=== PATIENT | female | born 1955 | race Two or more races ===

== ENCOUNTER 2019-11-03 16:00 | Inpatient (IN) | payer MEDICARE, MEDICAID ==
[~2019-11-03] VITALS: Ht 160 cm; Wt 98.0 kg
[2019-11-03] MEDS ORDERED: ONDANSETRON HCL 4MG/2ML INJ IV ONE (16:45)
[2019-11-03] MEDS ORDERED: SODIUM CHLORIDE 0.9% 500 ML IV ONE (16:45)
[2019-11-03] MEDS ORDERED: SODIUM CHLORIDE 0.9% 1000ML BAG (SEPSIS BOLUS) IV ONE (17:15)
[2019-11-03] MEDS ORDERED: LEVOFLOXACIN 750MG PREMIX 150 ML IV ONE (17:15)
[2019-11-03 18:55] LABS: HEMATOCRIT. 37.9 % (36.0-48.0); HEMOGLOBIN. 12.5 g/dL (12.0-16.0); MEAN CORPUSCULAR HEMOGLOBIN 31.2 pg (28.0-32.0); MEAN CORPUSCULAR VOLUME 94.4 fL (81.0-99.0); MEAN PLATELET VOLUME 10.7 fl (7.4-10.4); PLATELET 149 x1000/uL (130-400); RED BLOOD CELL COUNT 4.02 mill/uL (4.2-5.4); RED CELL DISTRIBUTION WIDTH 16.9 % (11.6-14.6)
[2019-11-03 19:01] LABS: CHLORIDE 106 mEq/L (98-107)
[2019-11-03 19:03] LABS: CLARITY URINE CLOUDY (CLEAR); COLOR URINE DK YELLOW (YELLOW); KETONES URINE TRACE (NEGATIVE); LEUKOCYTE ESTERASE URINE 2+ (NEGATIVE); NITRITE URINE POSITIVE (NEGATIVE); OCCULT BLOOD URINE 1+ (NEGATIVE); PH URINE 5.5 (4.5-8.0); PROTEIN URINE 1+ (NEGATIVE); SPECIFIC GRAVITY URINE 1.019 (1.005-1.030)
[2019-11-03 19:39] LABS: PLATELET ESTIMATE NORMAL
[2019-11-03] MEDS ORDERED: DILTIAZEM HCL 5MG/ML 5ML VIAL IV ONE (19:45)
[2019-11-04] MEDS ORDERED: ENOXAPARIN 80MG/0.8ML SYR SUBCUT ONE (00:15)
[2019-11-04] MEDS ORDERED: ASPIRIN 325MG TABLET PO SCH (01:30)
[2019-11-04] MEDS ORDERED: ENOXAPARIN 100MG/ML SYR SUBCUT SCH ×2 (01:31→16:00)
[2019-11-04] MEDS ORDERED: CLONIDINE 0.1MG TABLET PO PRN (02:30)
[2019-11-04] MEDS ORDERED: MAGNESIUM/ALUMINUM HYDROXIDE/SIMETHICONE 30ML UDC PO PRN (02:30)
[2019-11-04] MEDS ORDERED: DOCUSATE SODIUM 100MG CAPSULE PO PRN (02:30)
[2019-11-04] MEDS ORDERED: HYDROCODONE/ACETAMINOPHEN 5/325MG TABLET PO PRN (02:30)
[2019-11-04] MEDS: MORPHINE SULFATE 2 MG/ML CPJ (NOT FOR IM USE) IV PRN (03:05)
[2019-11-04] MEDS ORDERED: FUROSEMIDE 40MG/4ML VIAL IV SCH (09:30)
[2019-11-04] MEDS ORDERED: AMLODIPINE 10MG TABLET PO SCH (09:30)
[2019-11-04] MEDS ORDERED: METOPROLOL TARTRATE 25MG TABLET PO SCH (09:30)
[2019-11-04] MEDS: ASPIRIN 81MG EC TABLET PO SCH (09:52)
[2019-11-04 16:20] LABS: BG BASE EXCESS -2.4 mmol/L (-2.0-2.0); BG CARBOXYHEMOGLOBIN 0.3 % (0.5-1.5); BG DEOXYHEMOGLOBIN 1.7 % (0.0-5.0); BG FRACTION INSPIRED OXYGEN 100; BG HCO3 ACT 22.5 mmol/L (22.0-26.0); BG METHEMOGLOBIN 0.2 % (0.0-1.5); BG OXYGEN SATURATION 98.3 % (92.0-98.5); BG OXYHEMOGLOBIN 97.8 % (94.0-97.0); BG PCO2 39.3 mmHg (35.0-45.0); BG PH 7.376 (7.350-7.450); BG SAMPLE SITE RIGHT RADIAL; BG TOTAL HEMOGLOBIN 12.6 g/dL (12.0-18.0); BG VENT MODE MASK - NRB
[2019-11-04 17:10] VITALS: BP 86/30
[2019-11-04] MEDS ORDERED: SODIUM CHLORIDE 0.9% 500 ML IV ONE (17:15)
[2019-11-04] MEDS: ENOXAPARIN 100MG/ML SYR SUBCUT SCH (17:21)
[2019-11-04 18:00] VITALS: BP 86/30
[2019-11-04] MEDS ORDERED: SITA25TA3 MT (18:12)
[2019-11-04] MEDS ORDERED: INSU100I24 SQ (18:12)
[2019-11-04] MEDS ORDERED: METF-414 MT (18:12)
[2019-11-04 18:53] VITALS: BP 91/38
[2019-11-04 20:00] VITALS: BP 95/48
[2019-11-04] MEDS ORDERED: LEVOFLOXACIN 500MG PREMIX 100 ML IV SCH (20:00)
[2019-11-04] MEDS: METOPROLOL TARTRATE 25MG TABLET PO SCH (20:59)
[2019-11-04 22:59] LABS: *AMPHETAMINES SCREEN URINE NEGATIVE (NEGATIVE); *BARBITURATES SCREEN URINE NEGATIVE (NEGATIVE); *BENZODIAZEPINES SCREEN URINE NEGATIVE (NEGATIVE); *COCAINE SCREEN URINE NEGATIVE (NEGATIVE); METHADONE URINE SCREEN NEGATIVE (NEGATIVE); OPIATES URINE SCREEN PRESUMTIVE POSITIVE (NEGATIVE)
[2019-11-04 23:00] LABS: CANNABINOID URINE SCREEN NEGATIVE (NEGATIVE); PHENCYCLIDINE URINE SCREEN NEGATIVE (NEGATIVE)
[2019-11-05] VITALS: BP 93/36
[2019-11-05 04:00] VITALS: BP 111/56
[2019-11-05] MEDS: ENOXAPARIN 100MG/ML SYR SUBCUT SCH ×2 (06:29→17:26)
[2019-11-05 08:00] VITALS: BP 101/37
[2019-11-05] MEDS: ASPIRIN 81MG EC TABLET PO SCH (08:31)
[2019-11-05] MEDS: METOPROLOL TARTRATE 25MG TABLET PO SCH ×2 (08:32→21:04)
[2019-11-05] MEDS: AMLODIPINE 2.5MG TABLET PO SCH (08:32)
[2019-11-05] MEDS ORDERED: ENOXAPARIN 40MG/0.4ML SYR SUBCUT SCH (09:00)
[2019-11-05 09:21] LABS: BG BASE EXCESS -3.8 mmol/L (-2.0-2.0); BG DEOXYHEMOGLOBIN 5.7 % (0.0-5.0); BG FRACTION INSPIRED OXYGEN 44; BG HCO3 ACT 20.3 mmol/L (22.0-26.0); BG METHEMOGLOBIN 0.1 % (0.0-1.5); BG OXYGEN SATURATION 94.3 % (92.0-98.5); BG OXYHEMOGLOBIN 94.2 % (94.0-97.0); BG PCO2 33.9 mmHg (35.0-45.0); BG PH 7.396 (7.350-7.450); BG PO2 73.8 mmHg (75.0-100.0); BG SAMPLE SITE RIGHT BRACHIAL; BG VENT MODE NASAL CANNULA
[2019-11-05] MEDS ORDERED: MAGNESIUM HYDROXIDE 400MG/5ML 30ML UDC PO PRN (11:15)
[2019-11-05] MEDS ORDERED: FUROSEMIDE 40MG/4ML VIAL IVP SCH (11:30)
[2019-11-05 12:00] VITALS: BP 97/49
[2019-11-05 15:46] LABS: INR 1.1; PROTHROMBIN TIME 11.6 sec (9.6-11.0)
[2019-11-05 15:49] LABS: CHLORIDE 104 mEq/L (98-107)
[2019-11-05 16:00] VITALS: BP 108/58
[2019-11-05 16:02] LABS: BASOPHILS % 0.4 % (0.0-2.0); EOSINOPHILS % 0.6 % (0.0-5.0); HEMATOCRIT. 36.8 % (36.0-48.0); HEMOGLOBIN. 12.1 g/dL (12.0-16.0); LDL CHOLESTEROL 95 mg/dL (5-100); LYMPHOCYTES % 12.1 % (20.0-50.0); MEAN CORPUSCULAR HEMOGLOBIN 31.1 pg (28.0-32.0); MEAN CORPUSCULAR VOLUME 94.5 fL (81.0-99.0); MEAN PLATELET VOLUME 10.1 fl (7.4-10.4); MONOCYTES % 9.8 % (2.0-8.0); NEUTROPHILS % 77.1 % (40.0-76.0); PLATELET 156 x1000/uL (130-400); RED BLOOD CELL COUNT 3.89 mill/uL (4.2-5.4)
[2019-11-05 16:04] LABS: HDL CHOLESTEROL 10 mg/dL (40-59)
[2019-11-05] MEDS: CEFAZOLIN 1000MG PREMIX 50 ML IV SCH ×2 (18:00→18:39)
[2019-11-05] MEDS ORDERED: MAGNESIUM 1 G PREMIX 100 ML IV ONE (18:30)
[2019-11-05 20:00] VITALS: BP 110/63
[2019-11-05] MEDS: GUAIFENESIN 600MG ER TABLET PO SCH (21:04)
[2019-11-05] MEDS: IPRATROPIUM/ALBUTEROL 0.5-3(2.5)MG/3ML NEB HHN SCH (21:38)
[2019-11-06] VITALS: BP 114/56
[2019-11-06] MEDS: CEFAZOLIN 1000MG PREMIX 50 ML IV SCH ×3 (01:01→17:55)
[2019-11-06] MEDS: IPRATROPIUM/ALBUTEROL 0.5-3(2.5)MG/3ML NEB HHN SCH ×4 (02:21→20:29)
[2019-11-06 04:00] VITALS: BP 129/58
[2019-11-06] MEDS: ENOXAPARIN 100MG/ML SYR SUBCUT SCH ×2 (05:07→17:10)
[2019-11-06 08:00] VITALS: BP 111/59
[2019-11-06 08:11] LABS: BASOPHILS % 0.8 % (0.0-2.0); EOSINOPHILS % 1.1 % (0.0-5.0); HEMATOCRIT. 34.7 % (36.0-48.0); HEMOGLOBIN. 11.6 g/dL (12.0-16.0); LYMPHOCYTES % 15.8 % (20.0-50.0); MEAN CORPUSCULAR HEMOGLOBIN 30.9 pg (28.0-32.0); MEAN CORPUSCULAR VOLUME 92.6 fL (81.0-99.0); MEAN PLATELET VOLUME 10.9 fl (7.4-10.4); MONOCYTES % 12.1 % (2.0-8.0); NEUTROPHILS % 70.2 % (40.0-76.0); PLATELET 158 x1000/uL (130-400); RED BLOOD CELL COUNT 3.75 mill/uL (4.2-5.4); RED CELL DISTRIBUTION WIDTH 16.9 % (11.6-14.6)
[2019-11-06 08:16] LABS: CHLORIDE 103 mEq/L (98-107)
[2019-11-06] MEDS ORDERED: POTASSIUM CHLORIDE 10MEQ TABLET SR PO NR (08:30)
[2019-11-06] MEDS: METOPROLOL TARTRATE 25MG TABLET PO SCH ×2 (09:07→21:14)
[2019-11-06] MEDS: AMLODIPINE 2.5MG TABLET PO SCH (09:08)
[2019-11-06] MEDS: GUAIFENESIN 600MG ER TABLET PO SCH ×2 (09:08→21:14)
[2019-11-06] MEDS: ASPIRIN 81MG EC TABLET PO SCH (09:08)
[2019-11-06 12:00] VITALS: BP 112/55
[2019-11-06] MEDS ORDERED: FUROSEMIDE 40MG/4ML VIAL IVP NR (13:30)
[2019-11-06 16:00] VITALS: BP 114/58
[2019-11-06] MEDS: ACETAMINOPHEN 325MG TABLET PO PRN (17:10)
[2019-11-06 20:00] VITALS: BP 117/44
[2019-11-06] MEDS: ATORVASTATIN CALCIUM 20MG TABLET PO SCH (21:12)
[2019-11-07] VITALS: BP_SYST 134; BP_SYST 139; BP_DIAS 54; BP_DIAS 89
[2019-11-07] MEDS: IPRATROPIUM/ALBUTEROL 0.5-3(2.5)MG/3ML NEB HHN SCH ×3 (01:47→22:02)
[2019-11-07] MEDS: CEFAZOLIN 1000MG PREMIX 50 ML IV SCH ×3 (02:09→18:19)
[2019-11-07] MEDS: ACETAMINOPHEN 325MG TABLET PO PRN (03:31)
[2019-11-07 04:00] VITALS: BP 116/50
[2019-11-07] MEDS: ENOXAPARIN 100MG/ML SYR SUBCUT SCH (06:02)
[2019-11-07 07:42] LABS: EOSINOPHILS % 1.1 % (0.0-5.0); HEMATOCRIT. 34.4 % (36.0-48.0); HEMOGLOBIN. 11.7 g/dL (12.0-16.0); MEAN CORPUSCULAR VOLUME 91.3 fL (81.0-99.0); MEAN PLATELET VOLUME 10.5 fl (7.4-10.4); MONOCYTES % 11.8 % (2.0-8.0); NEUTROPHILS % 69.1 % (40.0-76.0); PLATELET 160 x1000/uL (130-400); RED BLOOD CELL COUNT 3.76 mill/uL (4.2-5.4); RED CELL DISTRIBUTION WIDTH 16.9 % (11.6-14.6)
[2019-11-07 07:43] LABS: CHLORIDE 105 mEq/L (98-107)
[2019-11-07 08:00] VITALS: BP 128/78
[2019-11-07] MEDS: ASPIRIN 81MG EC TABLET PO SCH (09:09)
[2019-11-07] MEDS: GUAIFENESIN 600MG ER TABLET PO SCH ×2 (09:09→20:47)
[2019-11-07] MEDS: AMLODIPINE 2.5MG TABLET PO SCH (09:09)
[2019-11-07] MEDS: METOPROLOL TARTRATE 25MG TABLET PO SCH ×2 (09:12→20:47)
[2019-11-07] MEDS: CLOPIDOGREL 75MG TABLET PO SCH (11:38)
[2019-11-07 12:00] VITALS: BP 121/63
[2019-11-07 16:00] VITALS: BP 133/62
[2019-11-07 20:00] VITALS: BP 144/68
[2019-11-07] MEDS: ATORVASTATIN CALCIUM 20MG TABLET PO SCH (20:47)
[2019-11-07] MEDS: MORPHINE SULFATE 2 MG/ML CPJ (NOT FOR IM USE) IV PRN (20:48)
[2019-11-08] VITALS: BP 139/89
[2019-11-08] MEDS: IPRATROPIUM/ALBUTEROL 0.5-3(2.5)MG/3ML NEB HHN SCH ×4 (02:32→20:41)
[2019-11-08] MEDS: CEFAZOLIN 1000MG PREMIX 50 ML IV SCH ×3 (02:53→20:40)
[2019-11-08 04:00] VITALS: BP 146/84
[2019-11-08 08:00] VITALS: BP 118/57
[2019-11-08] MEDS ORDERED: ENOXAPARIN 30MG/0.3ML SYR SUBCUT SCH (09:00)
[2019-11-08] MEDS: CLOPIDOGREL 75MG TABLET PO SCH (09:21)
[2019-11-08] MEDS: ONDANSETRON HCL 4MG/2ML INJ IV PRN ×2 (09:21→17:56)
[2019-11-08] MEDS: ASPIRIN 81MG EC TABLET PO SCH (09:21)
[2019-11-08] MEDS: AMLODIPINE 2.5MG TABLET PO SCH (09:22)
[2019-11-08] MEDS: GUAIFENESIN 600MG ER TABLET PO SCH ×2 (09:22→20:50)
[2019-11-08] MEDS: METOPROLOL TARTRATE 25MG TABLET PO SCH ×2 (09:22→20:50)
[2019-11-08 12:00] VITALS: BP 92/48
[2019-11-08] MEDS: PANTOPRAZOLE SODIUM 40 MG/VIAL IV SCH (15:16)
[2019-11-08 15:57] VITALS: BP 83/51
[2019-11-08] MEDS: SODIUM CHLORIDE 0.9% 1,000 ML IV SCH (16:09)
[2019-11-08 16:16] LABS: TOTAL IRON BINDING CAPACITY 213 ug/dL (250-450)
[2019-11-08] MEDS: MORPHINE SULFATE 2 MG/ML CPJ (NOT FOR IM USE) IV PRN (18:06)
[2019-11-08 20:00] VITALS: BP 113/67
[2019-11-08] MEDS: ATORVASTATIN CALCIUM 20MG TABLET PO SCH (20:49)
[2019-11-08 23:29] LABS: HEMOGLOBIN 7.4 g/dL (12.0-16.0)
[2019-11-09] VITALS (17 sets, daily range): BP systolic 101–142; BP diastolic 33–76
[2019-11-09] MEDS: MORPHINE SULFATE 2 MG/ML CPJ (NOT FOR IM USE) IV PRN (01:48)
[2019-11-09] MEDS: IPRATROPIUM/ALBUTEROL 0.5-3(2.5)MG/3ML NEB HHN SCH ×5 (02:04→21:16)
[2019-11-09] MEDS: SODIUM CHLORIDE 0.9% 1,000 ML IV SCH (03:20)
[2019-11-09] MEDS: CEFAZOLIN 1000MG PREMIX 50 ML IV SCH ×3 (05:37→19:05)
[2019-11-09 07:50] LABS: HEMOGLOBIN 6.6 g/dL (12.0-16.0)
[2019-11-09 07:51] LABS: HEMATOCRIT 20.5 % (36.0-48.0)
[2019-11-09] MEDS: GUAIFENESIN 600MG ER TABLET PO SCH ×2 (09:00→21:02)
[2019-11-09] MEDS: CLOPIDOGREL 75MG TABLET PO SCH (09:00)
[2019-11-09] MEDS: ASPIRIN 81MG EC TABLET PO SCH (09:00)
[2019-11-09] MEDS: AMLODIPINE 2.5MG TABLET PO SCH (09:00)
[2019-11-09] MEDS ORDERED: PANTOPRAZOLE SODIUM 40 MG/VIAL IV SCH (09:00)
[2019-11-09] MEDS: METOPROLOL TARTRATE 25MG TABLET PO SCH ×2 (09:00→21:02)
[2019-11-09] MEDS ORDERED: ENOXAPARIN 40MG/0.4ML SYR SUBCUT SCH (09:00)
[2019-11-09] MEDS: PANTOPRAZOLE SODIUM 40 MG/VIAL IV SCH ×2 (09:14→21:01)
[2019-11-09] MEDS ORDERED: FUROSEMIDE 40MG/4ML VIAL IVP NR (11:00)
[2019-11-09] MEDS: ONDANSETRON HCL 4MG/2ML INJ IV PRN (11:13)
[2019-11-09 11:58] LABS: MEAN CORPUSCULAR HEMOGLOBIN 30.9 pg (28.0-32.0); MEAN CORPUSCULAR VOLUME 93.8 fL (81.0-99.0); MEAN PLATELET VOLUME 9.8 fl (7.4-10.4); PLATELET 206 x1000/uL (130-400); RED BLOOD CELL COUNT 2.09 mill/uL (4.2-5.4); RED CELL DISTRIBUTION WIDTH 17.1 % (11.6-14.6)
[2019-11-09 12:02] LABS: INR 1.3; PARTIAL THROMBOPLASTIN TIME 26.2 sec (23.4-31.0); PROTHROMBIN TIME 13.5 sec (9.6-11.0)
[2019-11-09 12:03] LABS: HEMATOCRIT. 19.6 % (36.0-48.0); HEMOGLOBIN. 6.5 g/dL (12.0-16.0)
[2019-11-09 12:34] LABS: CHLORIDE 106 mEq/L (98-107)
[2019-11-09 13:07] LABS: HEPATITIS B SURFACE ANTIGEN NEGATIVE
[2019-11-09 13:36] LABS: HEPATITIS A AB IGM NEGATIVE (NEGATIVE)
[2019-11-09 14:13] LABS: NUCLEATED RED BLOOD CELLS 1 /100 WBC; PLATELET ESTIMATE NORMAL
[2019-11-09] MEDS ORDERED: MIDAZOLAM HCL 5 MG/5 ML VIAL IV ONE (14:36)
[2019-11-09] MEDS ORDERED: FENTANYL CITRATE/PF 50MCG/ML 2ML VIAL ONE (15:54)
[2019-11-09] MEDS ORDERED: MIDAZOLAM HCL 5 MG/5 ML VIAL ONE (15:54)
[2019-11-09] MEDS ORDERED: FENTANYL CITRATE/PF 50MCG/ML 2ML VIAL IV ONE (16:38)
[2019-11-09] MEDS ORDERED: DIAZEPAM 5 MG/ML 2ML CPJ IV ONE (16:40)
[2019-11-09] MEDS ORDERED: DIAZEPAM 5 MG/ML 2ML CPJ ONE (16:41)
[2019-11-09] MEDS ORDERED: IPRATROPIUM/ALBUTEROL 0.5-3(2.5)MG/3ML NEB ONE ×2 (18:18→18:19)
[2019-11-09] MEDS: SUCRALFATE 1G TABLET PO SCH (19:05)
[2019-11-09] MEDS: METOCLOPRAMIDE HCL 10MG/2ML VIAL IV SCH (19:05)
[2019-11-09 20:23] LABS: BASOPHILS % 0.3 % (0.0-2.0); EOSINOPHILS % 0.2 % (0.0-5.0); HEMATOCRIT. 26.2 % (36.0-48.0); HEMOGLOBIN. 8.7 g/dL (12.0-16.0); LYMPHOCYTES % 13.8 % (20.0-50.0); MEAN CORPUSCULAR HEMOGLOBIN 30.6 pg (28.0-32.0); MEAN CORPUSCULAR VOLUME 92.2 fL (81.0-99.0); MEAN PLATELET VOLUME 10.2 fl (7.4-10.4); MONOCYTES % 8.9 % (2.0-8.0); NEUTROPHILS % 76.8 % (40.0-76.0); PLATELET 195 x1000/uL (130-400); RED BLOOD CELL COUNT 2.84 mill/uL (4.2-5.4); RED CELL DISTRIBUTION WIDTH 16.2 % (11.6-14.6)
[2019-11-09 20:25] LABS: INR 1.2; PROTHROMBIN TIME 12.7 sec (9.6-11.0)
[2019-11-09] MEDS: ATORVASTATIN CALCIUM 20MG TABLET PO SCH (21:02)
[2019-11-10] VITALS (19 sets, daily range): BP systolic 73–122; BP diastolic 25–63
[2019-11-10] MEDS: METOCLOPRAMIDE HCL 10MG/2ML VIAL IV SCH ×4 (00:16→17:16)
[2019-11-10] MEDS: SUCRALFATE 1G TABLET PO SCH ×4 (00:16→17:16)
[2019-11-10] MEDS: IPRATROPIUM/ALBUTEROL 0.5-3(2.5)MG/3ML NEB HHN SCH ×4 (01:43→20:35)
[2019-11-10] MEDS: CEFAZOLIN 1000MG PREMIX 50 ML IV SCH ×3 (03:16→17:16)
[2019-11-10] MEDS: SODIUM CHLORIDE 0.9% 1,000 ML IV SCH ×3 (06:33→15:43)
[2019-11-10] MEDS ORDERED: MORPHINE SULFATE 2 MG/ML CPJ (NOT FOR IM USE) IV PRN (07:45)
[2019-11-10] MEDS ORDERED: PANTOPRAZOLE SODIUM 40 MG/VIAL IV SCH (08:00)
[2019-11-10 09:41] LABS: HEMATOCRIT 22.6 % (36.0-48.0); HEMOGLOBIN 7.8 g/dL (12.0-16.0); MEAN CORPUSCULAR HEMOGLOBIN 31.7 pg (28.0-32.0); MEAN CORPUSCULAR VOLUME 92.3 fL (81.0-99.0); PLATELET 128 x1000/uL (130-400); RED BLOOD CELL COUNT 2.45 mill/uL (4.2-5.4)
[2019-11-10 09:44] LABS: CHLORIDE 112 mEq/L (98-107)
[2019-11-10] MEDS: PANTOPRAZOLE SODIUM 40 MG/VIAL IV SCH ×2 (09:45→21:42)
[2019-11-10] MEDS: AMLODIPINE 2.5MG TABLET PO SCH (09:46)
[2019-11-10] MEDS: METFORMIN HCL 500MG TABLET PO SCH ×2 (09:46→17:16)
[2019-11-10] MEDS: GUAIFENESIN 600MG ER TABLET PO SCH ×2 (09:46→21:42)
[2019-11-10 09:55] LABS: HAPTOGLOBIN 153 mg/dL (30-200)
[2019-11-10] MEDS ORDERED: ALBUMIN HUMAN 12.5G/250ML (5%) IV NR (10:30)
[2019-11-10] MEDS ORDERED: DIATR MEGLU/DIATRIZOATE SOLN 30ML PO NR (13:00)
[2019-11-10 16:53] LABS: HEMATOCRIT 23.8 % (36.0-48.0); HEMOGLOBIN 8.1 g/dL (12.0-16.0)
[2019-11-10 17:07] LABS: AMYLASE 29 IU/L (25-115)
[2019-11-10] MEDS ORDERED: IOHEXOL-300 100 ML BOTTLE ONE (19:27)
[2019-11-10] MEDS: ATORVASTATIN CALCIUM 20MG TABLET PO SCH (21:42)
[2019-11-11] VITALS (12 sets, daily range): BP systolic 92–151; BP diastolic 39–68
[2019-11-11] MEDS: METOCLOPRAMIDE HCL 10MG/2ML VIAL IV SCH ×5 (00:04→23:59)
[2019-11-11] MEDS: SUCRALFATE 1G TABLET PO SCH ×5 (00:04→23:59)
[2019-11-11] MEDS: IPRATROPIUM/ALBUTEROL 0.5-3(2.5)MG/3ML NEB HHN SCH ×4 (01:29→22:05)
[2019-11-11] MEDS: SODIUM CHLORIDE 0.9% 1,000 ML IV SCH ×2 (04:00→14:48)
[2019-11-11] MEDS: METFORMIN HCL 500MG TABLET PO SCH ×2 (06:16→17:50)
[2019-11-11] MEDS: ACETAMINOPHEN 325MG TABLET PO PRN (06:48)
[2019-11-11 07:40] LABS: HEMATOCRIT. 21.6 % (36.0-48.0); HEMOGLOBIN. 7.4 g/dL (12.0-16.0); MEAN CORPUSCULAR HEMOGLOBIN 31.8 pg (28.0-32.0); MEAN CORPUSCULAR VOLUME 92.8 fL (81.0-99.0); MEAN PLATELET VOLUME 9.5 fl (7.4-10.4); PLATELET 142 x1000/uL (130-400); RED BLOOD CELL COUNT 2.33 mill/uL (4.2-5.4)
[2019-11-11 07:52] LABS: CHLORIDE 114 mEq/L (98-107)
[2019-11-11] MEDS: GUAIFENESIN 600MG ER TABLET PO SCH ×2 (09:50→22:03)
[2019-11-11] MEDS: PANTOPRAZOLE SODIUM 40 MG/VIAL IV SCH ×2 (09:50→22:03)
[2019-11-11] MEDS: AMLODIPINE 2.5MG TABLET PO SCH (09:52)
[2019-11-11 10:58] LABS: BG BASE EXCESS -1.9 mmol/L (-2.0-2.0); BG CARBOXYHEMOGLOBIN 0.3 % (0.5-1.5); BG DEOXYHEMOGLOBIN 5.5 % (0.0-5.0); BG FRACTION INSPIRED OXYGEN 45; BG HCO3 ACT 22.5 mmol/L (22.0-26.0); BG OXYGEN SATURATION 94.5 % (92.0-98.5); BG OXYHEMOGLOBIN 94.2 % (94.0-97.0); BG PCO2 36.3 mmHg (35.0-45.0); BG PO2 77.4 mmHg (75.0-100.0); BG SAMPLE SITE RIGHT RADIAL; BG TOTAL HEMOGLOBIN 8.3 g/dL (12.0-18.0); BG VENT MODE MASK - VENTI
[2019-11-11] MEDS ORDERED: POTASSIUM CHLORIDE 20MEQ/PACKET PO SCH (11:00)
[2019-11-11 11:40] LABS: NUCLEATED RED BLOOD CELLS 2 /100 WBC; PLATELET ESTIMATE NORMAL
[2019-11-11] MEDS ORDERED: PIPERACILLIN/TAZOBACTAM 3.375 G/VIAL IV SCH (14:00)
[2019-11-11] MEDS: PIPERACILLIN/TAZOBACTAM 3.375 G in DEXT 5% WATER 100 ML IV SCH ×2 (14:59→17:50)
[2019-11-11 16:11] LABS: HEMATOCRIT 23.5 % (36.0-48.0); MEAN CORPUSCULAR HEMOGLOBIN 31.7 pg (28.0-32.0); MEAN CORPUSCULAR VOLUME 93.6 fL (81.0-99.0); PLATELET 144 x1000/uL (130-400); RED BLOOD CELL COUNT 2.51 mill/uL (4.2-5.4); RED CELL DISTRIBUTION WIDTH 16.2 % (11.6-14.6)
[2019-11-11] MEDS ORDERED: IOHEXOL-300 100 ML BOTTLE ONE (16:58)
[2019-11-11] MEDS: HYDROCODONE/ACETAMINOPHEN 5/325MG TABLET PO PRN (22:04)
[2019-11-11] MEDS: ATORVASTATIN CALCIUM 20MG TABLET PO SCH (22:04)
[2019-11-12] VITALS (12 sets, daily range): BP systolic 93–136; BP diastolic 44–79
[2019-11-12] MEDS: PIPERACILLIN/TAZOBACTAM 3.375 G in DEXT 5% WATER 100 ML IV SCH ×5 (00:03→23:32)
[2019-11-12] MEDS: SODIUM CHLORIDE 0.9% 1,000 ML IV SCH ×3 (02:44→20:00)
[2019-11-12] MEDS: SUCRALFATE 1G TABLET PO SCH ×4 (06:34→23:32)
[2019-11-12] MEDS: METFORMIN HCL 500MG TABLET PO SCH ×2 (06:34→17:06)
[2019-11-12] MEDS: METOCLOPRAMIDE HCL 10MG/2ML VIAL IV SCH ×4 (06:34→23:32)
[2019-11-12 07:46] LABS: CHLORIDE 109 mEq/L (98-107)
[2019-11-12] MEDS: IPRATROPIUM/ALBUTEROL 0.5-3(2.5)MG/3ML NEB HHN SCH ×3 (07:46→20:27)
[2019-11-12] MEDS: GUAIFENESIN 600MG ER TABLET PO SCH ×2 (08:08→20:58)
[2019-11-12] MEDS: PANTOPRAZOLE SODIUM 40 MG/VIAL IV SCH ×2 (08:08→20:58)
[2019-11-12] MEDS: AMLODIPINE 2.5MG TABLET PO SCH (08:09)
[2019-11-12 09:49] LABS: HEMATOCRIT. 25.1 % (36.0-48.0); HEMOGLOBIN. 8.6 g/dL (12.0-16.0); MEAN CORPUSCULAR HEMOGLOBIN 32.1 pg (28.0-32.0); MEAN PLATELET VOLUME 10.1 fl (7.4-10.4); PLATELET 191 x1000/uL (130-400); RED BLOOD CELL COUNT 2.68 mill/uL (4.2-5.4)
[2019-11-12 11:33] LABS: PLATELET ESTIMATE NORMAL
[2019-11-12] MEDS ORDERED: SODIUM BICARBONATE 4% (2.4MEQ) 5ML VIAL IV ONE (13:18)
[2019-11-12] MEDS ORDERED: LIDOCAINE HCL 1% 20ML VIAL (Pyxis) INJ ONE (13:18)
[2019-11-12 16:53] LABS: HEMATOCRIT 25.5 % (36.0-48.0); HEMOGLOBIN 8.7 g/dL (12.0-16.0)
[2019-11-12] MEDS: ATORVASTATIN CALCIUM 20MG TABLET PO SCH (20:58)
[2019-11-12] MEDS: HYDROCODONE/ACETAMINOPHEN 5/325MG TABLET PO PRN (21:03)
[2019-11-13] VITALS (12 sets, daily range): BP systolic 99–144; BP diastolic 46–69
[2019-11-13] MEDS: IPRATROPIUM/ALBUTEROL 0.5-3(2.5)MG/3ML NEB HHN SCH ×4 (02:19→20:39)
[2019-11-13] MEDS: SODIUM CHLORIDE 0.9% 1,000 ML IV SCH ×2 (06:00→16:00)
[2019-11-13] MEDS: SUCRALFATE 1G TABLET PO SCH ×3 (06:36→17:52)
[2019-11-13] MEDS: METFORMIN HCL 500MG TABLET PO SCH ×2 (06:36→17:52)
[2019-11-13] MEDS: METOCLOPRAMIDE HCL 10MG/2ML VIAL IV SCH ×3 (06:36→17:53)
[2019-11-13] MEDS: PIPERACILLIN/TAZOBACTAM 3.375 G in DEXT 5% WATER 100 ML IV SCH ×3 (06:36→17:52)
[2019-11-13] MEDS: PANTOPRAZOLE SODIUM 40 MG/VIAL IV SCH ×2 (08:10→20:52)
[2019-11-13] MEDS: GUAIFENESIN 600MG ER TABLET PO SCH ×2 (08:11→20:51)
[2019-11-13] MEDS: AMLODIPINE 2.5MG TABLET PO SCH (08:11)
[2019-11-13 09:27] LABS: BASOPHILS % 0.5 % (0.0-2.0); EOSINOPHILS % 1.6 % (0.0-5.0); HEMATOCRIT. 24.1 % (36.0-48.0); HEMOGLOBIN. 8.4 g/dL (12.0-16.0); LYMPHOCYTES % 8.6 % (20.0-50.0); MEAN CORPUSCULAR HEMOGLOBIN 32.6 pg (28.0-32.0); MEAN CORPUSCULAR VOLUME 93.7 fL (81.0-99.0); MEAN PLATELET VOLUME 8.7 fl (7.4-10.4); MONOCYTES % 6.4 % (2.0-8.0); NEUTROPHILS % 82.9 % (40.0-76.0); PLATELET 189 x1000/uL (130-400); RED BLOOD CELL COUNT 2.57 mill/uL (4.2-5.4); RED CELL DISTRIBUTION WIDTH 16.7 % (11.6-14.6)
[2019-11-13 09:50] LABS: CHLORIDE 107 mEq/L (98-107)
[2019-11-13] MEDS ORDERED: POTASSIUM CHLORIDE 20MEQ/PACKET PO NR (10:15)
[2019-11-13] MEDS ORDERED: AMLO2.5T45 PO (12:20)
[2019-11-13] MEDS ORDERED: ATOR20TA PO (12:20)
[2019-11-13] MEDS ORDERED: SUCR1TAB30 PO (12:20)
[2019-11-13] MEDS ORDERED: HYDR-4001 PO (12:20)
[2019-11-13 16:54] LABS: HEMATOCRIT 24.7 % (36.0-48.0); HEMOGLOBIN 8.2 g/dL (12.0-16.0)
[2019-11-13 19:09] LABS: BG BASE EXCESS -5.9 mmol/L (-2.0-2.0); BG CARBOXYHEMOGLOBIN 0.3 % (0.5-1.5); BG DEOXYHEMOGLOBIN 9.6 % (0.0-5.0); BG FRACTION INSPIRED OXYGEN 21; BG HCO3 ACT 17.3 mmol/L (22.0-26.0); BG METHEMOGLOBIN 0.6 % (0.0-1.5); BG OXYGEN SATURATION 90.3 % (92.0-98.5); BG OXYHEMOGLOBIN 89.5 % (94.0-97.0); BG PCO2 26.1 mmHg (35.0-45.0); BG PH 7.439 (7.350-7.450); BG PO2 57.2 mmHg (75.0-100.0); BG SAMPLE SITE RIGHT BRACHIAL; BG VENT MODE ROOM AIR
[2019-11-13] MEDS: ATORVASTATIN CALCIUM 20MG TABLET PO SCH (20:51)
[2019-11-13] MEDS: HYDROCODONE/ACETAMINOPHEN 5/325MG TABLET PO PRN (20:52)
[2019-11-14] VITALS (12 sets, daily range): BP systolic 106–152; BP diastolic 45–122
[2019-11-14] MEDS: PIPERACILLIN/TAZOBACTAM 3.375 G in DEXT 5% WATER 100 ML IV SCH ×4 (00:15→17:28)
[2019-11-14] MEDS: SODIUM CHLORIDE 0.9% 1,000 ML IV SCH ×2 (00:15→11:46)
[2019-11-14] MEDS: METOCLOPRAMIDE HCL 10MG/2ML VIAL IV SCH ×4 (00:20→17:27)
[2019-11-14] MEDS: SUCRALFATE 1G TABLET PO SCH ×4 (00:20→18:31)
[2019-11-14] MEDS: IPRATROPIUM/ALBUTEROL 0.5-3(2.5)MG/3ML NEB HHN SCH ×4 (02:09→22:19)
[2019-11-14] MEDS: METFORMIN HCL 500MG TABLET PO SCH ×2 (06:56→17:20)
[2019-11-14] MEDS: GUAIFENESIN 600MG ER TABLET PO SCH ×2 (08:27→21:03)
[2019-11-14] MEDS: AMLODIPINE 2.5MG TABLET PO SCH (08:27)
[2019-11-14] MEDS: PANTOPRAZOLE SODIUM 40 MG/VIAL IV SCH ×2 (08:27→21:00)
[2019-11-14 10:21] LABS: BASOPHILS % 0.4 % (0.0-2.0); EOSINOPHILS % 1.7 % (0.0-5.0); HEMATOCRIT. 25.6 % (36.0-48.0); HEMOGLOBIN. 8.6 g/dL (12.0-16.0); LYMPHOCYTES % 8.2 % (20.0-50.0); MEAN CORPUSCULAR HEMOGLOBIN 31.5 pg (28.0-32.0); MEAN CORPUSCULAR VOLUME 93.9 fL (81.0-99.0); MEAN PLATELET VOLUME 9.3 fl (7.4-10.4); MONOCYTES % 5.6 % (2.0-8.0); NEUTROPHILS % 84.1 % (40.0-76.0); PLATELET 267 x1000/uL (130-400); RED BLOOD CELL COUNT 2.72 mill/uL (4.2-5.4); RED CELL DISTRIBUTION WIDTH 16.6 % (11.6-14.6)
[2019-11-14 10:28] LABS: CHLORIDE 107 mEq/L (98-107)
[2019-11-14 12:05] LABS: BG BASE EXCESS -4.7 mmol/L (-2.0-2.0); BG CARBOXYHEMOGLOBIN 0.2 % (0.5-1.5); BG DEOXYHEMOGLOBIN 12.8 % (0.0-5.0); BG FRACTION INSPIRED OXYGEN 21; BG HCO3 ACT 19.6 mmol/L (22.0-26.0); BG METHEMOGLOBIN 0.1 % (0.0-1.5); BG OXYGEN SATURATION 87.2 % (92.0-98.5); BG OXYHEMOGLOBIN 86.9 % (94.0-97.0); BG PCO2 32.9 mmHg (35.0-45.0); BG PH 7.393 (7.350-7.450); BG PO2 51.1 mmHg (75.0-100.0); BG SAMPLE SITE RIGHT RADIAL; BG TOTAL HEMOGLOBIN 8.9 g/dL (12.0-18.0); BG VENT MODE ROOM AIR
[2019-11-14] MEDS ORDERED: POTASSIUM CHLORIDE 20MEQ/PACKET PO NR (12:30)
[2019-11-14] MEDS ORDERED: METHYLPREDNISOLONE SOD SUCC 125 MG/2 ML VIAL IV NR (12:30)
[2019-11-14] MEDS ORDERED: FUROSEMIDE 40MG/4ML VIAL IVP NR (12:30)
[2019-11-14 16:31] LABS: HEMATOCRIT 25.8 % (36.0-48.0); HEMOGLOBIN 8.8 g/dL (12.0-16.0)
[2019-11-14] MEDS: ATORVASTATIN CALCIUM 20MG TABLET PO SCH (21:03)
[2019-11-15] VITALS (12 sets, daily range): BP systolic 99–150; BP diastolic 39–109
[2019-11-15] MEDS: METOCLOPRAMIDE HCL 10MG/2ML VIAL IV SCH ×4 (00:14→18:17)
[2019-11-15] MEDS: PIPERACILLIN/TAZOBACTAM 3.375 G in DEXT 5% WATER 100 ML IV SCH ×4 (00:14→18:17)
[2019-11-15] MEDS: SUCRALFATE 1G TABLET PO SCH ×4 (00:14→18:17)
[2019-11-15] MEDS: IPRATROPIUM/ALBUTEROL 0.5-3(2.5)MG/3ML NEB HHN SCH ×4 (04:43→20:24)
[2019-11-15 06:47] LABS: HEMATOCRIT. 23.5 % (36.0-48.0); MEAN CORPUSCULAR HEMOGLOBIN 31.7 pg (28.0-32.0); MEAN CORPUSCULAR VOLUME 93.3 fL (81.0-99.0); MEAN PLATELET VOLUME 9.1 fl (7.4-10.4); PLATELET 203 x1000/uL (130-400); RED BLOOD CELL COUNT 2.52 mill/uL (4.2-5.4)
[2019-11-15 07:00] LABS: CHLORIDE 106 mEq/L (98-107)
[2019-11-15] MEDS: AMLODIPINE 2.5MG TABLET PO SCH (08:18)
[2019-11-15] MEDS: METFORMIN HCL 500MG TABLET PO SCH ×2 (08:18→18:17)
[2019-11-15] MEDS: PANTOPRAZOLE SODIUM 40 MG/VIAL IV SCH ×2 (08:18→20:20)
[2019-11-15] MEDS: GUAIFENESIN 600MG ER TABLET PO SCH ×2 (08:20→20:20)
[2019-11-15] MEDS ORDERED: POTASSIUM CHLORIDE 20MEQ TABLET SR PO NR (09:00)
[2019-11-15 09:50] LABS: PLATELET ESTIMATE NORMAL
[2019-11-15 17:18] LABS: HEMATOCRIT 27.3 % (36.0-48.0)
[2019-11-15] MEDS: ATORVASTATIN CALCIUM 20MG TABLET PO SCH (20:20)
== END 2019-11-15 22:57 | disposition home health service (06) | DRG 871 ==
LOC: ER 16:00 → EDBD 16:00 → EDBEDREQTM 21:01 → EDBEDREQ 21:01 → ENRESERV 11-04 14:45 → 7WST 11-04 17:03 → 5WST 11-05 01:00 → 3WST 11-08 16:59
PROVIDERS: ADMIT Hospitalist; ATTEND Hospitalist
PROC: 30233N1 Transfusion of Nonautologous Red Blood Cells into Peripheral Vein, Percutaneous Approach (ICD-10-PCS; 2019-11-09)
PROC: 0DB68ZX Excision of Stomach, Via Natural or Artificial Opening Endoscopic, Diagnostic (ICD-10-PCS; principal; 2019-11-11)
DX: A41.51 Sepsis due to Escherichia coli [E. coli] (principal); I21.4 Non-ST elevation (NSTEMI) myocardial infarction; J12.9 Viral pneumonia, unspecified; J96.01 Acute respiratory failure with hypoxia; E43 Unspecified severe protein-calorie malnutrition; K25.4 Chronic or unspecified gastric ulcer with hemorrhage; I50.41 Acute combined systolic (congestive) and diastolic (congestive) heart failure; K29.51 Unspecified chronic gastritis with bleeding; K85.90 Acute pancreatitis without necrosis or infection, unspecified; E87.2 Acidosis; N39.0 Urinary tract infection, site not specified; C78.00 Secondary malignant neoplasm of unspecified lung; K76.6 Portal hypertension; D62 Acute posthemorrhagic anemia; R18.8 Other ascites; C78.1 Secondary malignant neoplasm of mediastinum; J91.8 Pleural effusion in other conditions classified elsewhere; I85.10 Secondary esophageal varices without bleeding; R65.20 Severe sepsis without septic shock; E78.5 Hyperlipidemia, unspecified; E11.9 Type 2 diabetes mellitus without complications; I45.10 Unspecified right bundle-branch block; Z79.82 Long term (current) use of aspirin; K74.60 Unspecified cirrhosis of liver; E66.9 Obesity, unspecified; G47.33 Obstructive sleep apnea (adult) (pediatric); E87.6 Hypokalemia; I11.0 Hypertensive heart disease with heart failure; Z20.828 Contact with and (suspected) exposure to other viral communicable diseases; R16.1 Splenomegaly, not elsewhere classified; I25.10 Atherosclerotic heart disease of native coronary artery without angina pectoris; I95.9 Hypotension, unspecified; E78.00 Pure hypercholesterolemia, unspecified; Z68.38 Body mass index [BMI] 38.0-38.9, adult
CPT/HCPCS: 36415; 36600; 71045; 71250; 74176; 74177; 80048; 80053; 80061; 80076; 80305; 81003; 82105; 82140; 82150; 82270; 82375; 82378; 82550; 82728; 82805; 82962; 83010; 83540; 83550; 83605; 83615; 83735; 83880; 84145; 84484; 85014; 85018; 85025; 85027; 86301; 86705; 86709; 86803; 86850; 86880; 86900; 86920; 87077; 87186; 87340; 87635; 88305; 88312; 88313; 93005; 93306; 93970; 94618; 94640; 97162; 99291; C9113; J0690; J1650; J1940; J1956; J2250; J2270; J2405; J2543; J2765; J2930; J3010; J3475; J3490; J7030; J7040; J7060; P9016; P9041; Q9963; Q9967; U0003-CS